=== PATIENT | male | born 1945 | race Two or more races ===

== ENCOUNTER 2018-05-28 13:28 | Day surgery (SDC) | payer MEDICARE, OTHER ==
[2018-05-28] MEDS ORDERED: PROPOFOL 40 ML (14:26)
[2018-05-28] MEDS ORDERED: MIDAZOLAM 1 MG/ML 2 ML INJ (14:35)
== END 2018-05-28 16:27 | disposition home or self-care (01) ==
LOC: GIL 13:28
DX: D12.6 Benign neoplasm of colon, unspecified (principal); D50.9 Iron deficiency anemia, unspecified; K64.8 Other hemorrhoids; I10 Essential (primary) hypertension
CPT/HCPCS: 45385; 88305